=== PATIENT | male | born 2000 | race Two or more races ===

== ENCOUNTER 2020-11-07 15:51 | Outpatient (REF) | payer MEDICAID, SELFPAY | END 2020-11-07 15:52 | disposition home or self-care (01) | LOC: HO.LAB 15:51 | PROVIDERS: Visit Provider Internal Medicine | DX: Z20.828 Contact with and (suspected) exposure to other viral communicable diseases (principal) | CPT/HCPCS: C9803; U0003 ==

== ENCOUNTER 2020-12-12 14:02 | Outpatient (REF) | payer MEDICAID, SELFPAY | END 2020-12-12 14:03 | disposition home or self-care (01) | LOC: HO.LAB 14:02 | PROVIDERS: PCP Internal Medicine; Visit Provider Internal Medicine | DX: Z20.822 Contact with and (suspected) exposure to COVID-19 (principal) | CPT/HCPCS: 36415; C9803; U0003 ==

== ENCOUNTER 2021-07-20 10:10 | Outpatient (REF) | payer MEDICAID, SELFPAY ==
[2021-07-20 10:46] LABS: COVID-19 Test Negative (Negative); IDNOW Serial# 9DD0AD1C
== END 2021-07-20 10:11 | disposition home or self-care (01) ==
LOC: HO.LAB 10:10
PROVIDERS: PCP Internal Medicine; Visit Provider Internal Medicine
DX: Z20.822 Contact with and (suspected) exposure to COVID-19 (principal)
CPT/HCPCS: 36415; 87635

== ENCOUNTER 2022-04-02 17:18 | Emergency (ER) | payer MEDICAID, SELFPAY ==
--- NOTE | ~2022-04-02 | XR_ITS ---
EXAMINATION: XR ANKLE, RIGHT CLINICAL INFORMATION: Pain, swelling COMPARISON: None TECHNIQUE: AP, lateral, and mortise views of the right ankle. FINDINGS: There is no evidence for an acute fracture or dislocation. The mortise is grossly intact. Soft tissue swelling seen laterally. XR/XR ankle RT 2V IMPRESSION: No acute fracture or dislocation.
[2022-04-02 18:40] VITALS: BP 129/72; PULSE 72; RESP 18; TEMP 36.6; O2SAT 99; BMI 33.5
--- NOTE | 2022-04-02 20:04 | ED.LOWEXIN ---
HPI - Extremity Injury (Lower) General Chief Complaint: Extremity Injury, Lower Stated Complaint: right ankle pain, swollen Time Seen by Provider: 04/02/22 19:23 Source: patient Mode of arrival: ambulatory Limitations: no limitations History of Present Illness HPI Narrative: 21-year-old male presents to ED for right ankle pain for 1 week. Patient states he was playing basketball and twisted his ankle and it became swollen with bruising. Patient states swelling and bruising improved but still having pain. Patient denies hitting head or loss of consciousness. Related Data Previous Rx's Medication Instructions Recorded naproxen 500 mg tablet 500 mg PO BID PRN 10 Days #20 tab 04/02/22 prednisone 20 mg tablet 40 mg PO DAILY 5 Days #10 tab 04/02/22 Allergies Allergy/AdvReac Type Severity Reaction Status Date / Time No Known Allergies Allergy Verified 04/02/22 18:40 [No Known Allergies*] Review of Systems Review of Systems: Left ankle pain Yes all other systems are reviewed and are negative [facility] Social History Social History Advance Directives: No Advance Directives Information Provided: No Physical Exam Vital Signs: Vital Signs: Last Vital Signs Temp 97.8 F 04/02/22 18:40 Pulse 72 04/02/22 18:40 Resp 18 04/02/22 18:40 BP 129/72 04/02/22 18:40 Pulse Ox 99 04/02/22 18:40 BMI result Body Mass Index 33.5 Const: General: cooperative, healthy appearing, comfortable, no acute distress, well developed, alert, awake and Physically active Orientation/consciousness: oriented to time and patient oriented x3 HEENT: Head: Yes normal to inspection, Yes No palpable skull fracture present, Yes normocephalic, Yes atraumatic and No abrasion Eyes: General: appearance normal, both eyes and all related structures Neck: Neck: Yes normal visual inspection, Yes full ROM, Yes no lymphadenopathy, Yes no meningeal signs, Yes trachea midline, Yes supple, No anterior neck swelling and No tender Chest: Chest palpation & inspection: normal inspection of the chest and normal palpation of entire chest wall Resp: Effort & Inspection: normal respiratory effort and able to speak in complete sentences Auscultation: clear to auscultation bilaterally Cardio: Jugular venous distension: no JVD Heart sounds: S1 normal heart sound present and S2 normal heart sound present GI: Inspection: Yes normal to inspection and No abdominal wall ecchymosis Palpation (GI): nontender, no guarding and not rigid : General: No CVA tenderness and Yes no CVA tenderness Back/Spine/Pelvis: Back: no CVA tenderness, No CVA tenderness and No back tenderness Skin: General skin exam: no rashes or lesions noted and elasticity normal Neuro: General: oriented to time, patient oriented x3, gait normal and no meningeal signs Cranial nerves: Yes CN's II-XII intact bilaterally Extrem: General: Yes normal to inspection and Yes full ROM Ankle/foot/toe images: 1. Positive for ecchymosis with slight swelling and tenderness on palpation. Negative for deformity. Motor/neuro/vascular exam intact. Nichols test negative. Psych: Appearance: grossly normal, well kempt and not disheveled Course Course Course Narrative: X-ray ordered of ankle pain Reevaluation(s) Reevaluation #1: Diagnosis ankle sprain. Patient walking on ankle fine. Time: 20:12 MDM - Extremity Injury (Lower) MDM Narrative Medical decision making narrative: ankle sprain Discharge Plan Discharge Clinical Impression: Ankle sprain Patient Disposition: Home, Self-Care Instructions: Ankle Sprain (ED) Additional Instructions: X-ray came back normal and negative for fracture. Please follow-up with the primary care provider for MRI to rule out any tendon or ligament injury. Return to the ED immediately for increased swelling, bluish black discoloration, hotness, coldness, redness, leg swelling, calf pain, coughing up blood, chest pain, shortness of breath, or any other concerning symptoms. Prescriptions: New naproxen 500 mg tablet 500 mg PO BID PRN (Reason: pain) 10 Days Qty: 20 0RF prednisone 20 mg tablet 40 mg PO DAILY 5 Days Qty: 10 0RF Stand Alone Forms: Work/School Release Interventions: ED Discharge Assessment Last Done: 04/02/22 20:35 Discharge Date/Time: 04/02/22 20:30 Print Language: Japanese
== END 2022-04-02 20:30 | disposition home or self-care (01) ==
PROVIDERS: Emergency Provider Emergency Medicine; PCP Internal Medicine
DX: S93.401A Sprain of unspecified ligament of right ankle, initial encounter (principal); X50.1XXA Overexertion from prolonged static or awkward postures, initial encounter; Y93.67 Activity, basketball; Y92.9 Unspecified place or not applicable; Y99.9 Unspecified external cause status
CPT/HCPCS: 73600; 99283

== ENCOUNTER 2023-01-15 15:37 | Outpatient (REF) | payer MEDICAID, SELFPAY ==
--- NOTE | ~2023-01-15 | US_ITS ---
EXAMINATION: US SCROTUM CLINICAL INFORMATION: Testicular mass. COMPARISON: None TECHNIQUE: A sonogram of the scrotum was performed assessing nunez-scale appearance and color Doppler flow. Spectral Doppler analysis of the arterial and venous flow were performed in the testes bilaterally. FINDINGS: RIGHT: Right testicle measures 4.0 x 1.8 x 2.2 cm, volume 8.3 mL. No focal testicular parenchymal lesions are visualized. Spectral Doppler analysis of the arterial and venous flow is normal in the right testis. Right epididymal head is normal in size. Right epididymal head cyst measuring 1 mm. No right hydrocele or varicocele is seen. Right epididymal Doppler flow is normal. LEFT: Left testicle measures 3.6 x 1.8 x 2.5 cm, volume 8.5 mL. No focal testicular parenchymal lesions are visualized. Spectral Doppler analysis of the arterial and venous flow is normal in the left testis. Left epididymal head is normal in size. No left hydrocele is seen. Small left varicocele measuring 4 mm. Left epididymal Doppler flow is normal. Other: Area of patient indicated site of mass at the inferior left scrotum was scanned, no sonographic correlate. US/US scrotum IMPRESSION: Small left varicocele. Area of patient indicated site of mass at the inferior left scrotum was scanned, no sonographic correlate.
== END 2023-01-15 15:38 | disposition home or self-care (01) ==
LOC: HO.US 15:37
PROVIDERS: PCP Internal Medicine; Visit Provider General Practice
DX: N50.89 Other specified disorders of the male genital organs (principal)
CPT/HCPCS: 76870